=== PATIENT | female | born 1960 ===

== ENCOUNTER 2016-09-28 17:44 | Emergency (ER) | payer MEDICAID, OTHER ==
[2016-09-28 17:54] VITALS: BP 125/94; PULSE 96; RESP 18; TEMP 99.2; O2SAT 99
--- NOTE | 2016-09-28 18:25 | ED PDOC ---
HPI: Skin/Bite Injury Time Seen by Provider: 09/28/16 18:05 Chief Complaint (Nursing): Abnormal Skin Integrity Chief Complaint (Provider): Abnormal Skin Integrity History Per: Patient, Family (daughter acting as workforce services representative for patient) , Branch Banker History/Exam Limitations: no limitations Onset/Duration Of Symptoms: Hrs (pt says she noticed it earlier today ( approximately 6x hours prior to arrival)) Current Symptoms Are (Timing): Still Present Location Of Injury: Right: Abdomen (right groin region) Quality Of Symptoms: Painful Severity: Moderate Additional Complaint(s): 56 year old female with a pertinent medical history of HTN and hypercholesterolemia presents to the ED with complaints of a rash on her right groin region. She reports that she noticed it earlier today (approximately 6x hours prior to arrival). She reports that the rash was preceded by burning and stinging pain right leg and right groin region that started 2 days ago. She has taken naprosyn with no relief and the pain is exacerbated by touch to the region (including having clothing on the area). She denies having a fever or chills. PMD: Ross De La Cruz Jr, MD. Past Medical History Reviewed: Historical Data, Nursing Documentation, Vital Signs Vital Signs: Last Vital Signs Temp 99.2 F 09/28/16 17:52 Pulse 96 H 09/28/16 17:52 Resp 18 09/28/16 17:52 BP 125/94 H 09/28/16 17:52 Pulse Ox 99 09/28/16 18:33 - Medical History PMH: HTN, Hypercholesterolemia - Surgical History Surgical History: Appendectomy, (2x) Other surgeries: hysterectomy - Family History Family History: States: No Known Family Hx - Living Arrangements Living Arrangements: With Family - Social History Current smoker - smoking cessation education provided: No Alcohol: None Drugs: Denies - Home Medications Home Medications: Ambulatory Orders Medication Instructions Recorded Enalapril Maleate [Vasotec] 1 tab PO DAILY 09/28/16 Ibuprofen [Motrin Tab] 800 mg PO Q8 PRN #20 tab 09/28/16 traMADol [Ultram] 50 mg PO Q6H PRN #20 tab 09/28/16 valACYclovir [Valtrex] 1 gm PO TID #21 tab 09/28/16 - Allergies Allergies/Adverse Reactions: Allergies Allergy/AdvReac Type Severity Reaction Status Date / Time No Known Allergies Allergy Verified 09/28/16 17:51 Review of Systems ROS Statement: Except As Marked, All Systems Reviewed And Found Negative Constitutional: Negative for: Fever, Chills Skin: Positive for: Rash (right groin region) Physical Exam - Reviewed Nursing Documentation Reviewed: Yes Vital Signs Reviewed: Yes - Physical Exam Appears: Positive for: Well, Non-toxic, No Acute Distress Head Exam: Positive for: ATRAUMATIC, NORMOCEPHALIC Skin: Positive for: Normal Color Eye Exam: Positive for: Normal appearance Cardiovascular/Chest: Positive for: Regular Rate, Rhythm Respiratory: Positive for: Normal Breath Sounds. Negative for: Respiratory Distress Extremity: Positive for: Other (vesicular rash on erythematous base noted to right groin region. Moderate tenderness to palpation. Appearance is consistent with shingles) Neurologic/Psych: Positive for: Alert, Oriented (3x), Gait (stead) - ECG O2 Sat by Pulse Oximetry: 99 (RA) Pulse Ox Interpretation: Normal Medical Decision Making Medical Decision Makin:05 Initial impression: 56 year old female with shingles. Plan: * tramadol 50mg PO in ED * Patient will be will be discharged with Rx for tramadol, motrin and valtrex, and is instructed to follow up with PMD (Ross De La Cruz MD) in 2x days. Scribe Attestation: Documented by Tamara Gurrola, acting as a scribe for Rabia Ramey PA-C. Provider Scribe Attestation: All medical record entries made by the Scribe were at my direction and personally dictated by me. I have reviewed the chart and agree that the record accurately reflects my personal performance of the history, physical exam, medical decision making, and the department course for this patient. I have also personally directed, reviewed, and agree with the discharge instructions and disposition. Disposition - Clinical Impression Clinical Impression: Shingles - Patient ED Disposition Is Patient to be Admitted: No Counseled Patient/Family Regarding: Diagnosis, Need For Followup, Rx Given - Disposition Referrals: Ross De La Cruz Jr., MD [Family Provider] - Disposition: Routine/Home Disposition Time: 18:42 Condition: STABLE Additional Instructions: Take rx meds as directed. Keep area clean and dry, do not apply any topical creams. Follow up with primary care doctor in 2-3 days. Prescriptions: Ibuprofen [Motrin Tab] 800 mg PO Q8 PRN #20 tab PRN Reason: Pain, Moderate (4-7) traMADol [Ultram] 50 mg PO Q6H PRN #20 tab PRN Reason: Pain, Moderate (4-7) valACYclovir [Valtrex] 1 gm PO TID #21 tab Instructions: Shingles (ED) Print Language: WELSH
== END 2016-09-28 19:13 | disposition home or self-care (01) ==
LOC: H.ER 17:44
DX: B02.9 Zoster without complications (principal)

== ENCOUNTER 2018-04-11 00:14 | Emergency (ER) | payer MEDICAID ==
[2018-04-11 00:49] VITALS: TEMP 98.6
[2018-04-11] MEDS ORDERED: Sodium Chloride 0.9% 1,000 ML IV STA ×2 (01:20→01:22)
--- NOTE | 2018-04-11 01:34 | ED PDOC ---
HPI: Abdomen Time Seen by Provider: 04/11/18 00:45 Chief Complaint (Nursing): Abdominal Pain Chief Complaint (Provider): Abdominal Pain History Per: Patient History/Exam Limitations: no limitations Onset/Duration Of Symptoms: Days (x2) Current Symptoms Are (Timing): Still Present Additional Complaint(s): 57 year old female with pmHx of HTN, dyslipidemia, and gastritis, presents to ED with intermittent abdominal pain and 20 episodes of nonbloody, watery diarrhea. Patient reports having diarrhea on and off for 1 month but symptoms worsen within the last 2 days. She was evaluated by her PCP yesterday then diagnosed with colitis but was not prescribed medication. Patient additionally reports associated tactile fever, nausea, general weakness, and sore throat but denies vomiting. PCP: Dr. Mike Oliver Past Medical History Reviewed: Historical Data, Nursing Documentation, Vital Signs Vital Signs: Last Vital Signs Temp 98.6 F 04/11/18 00:42 Pulse 115 H 04/11/18 00:42 Resp 16 04/11/18 00:42 BP 126/85 04/11/18 00:42 Pulse Ox 100 04/11/18 00:42 - Medical History PMH: Gastritis, HTN, Hypercholesterolemia - Surgical History Surgical History: Appendectomy, (2x) - Family History Family History: States: Unknown Family Hx - Social History Current smoker - smoking cessation education provided: No Alcohol: None Drugs: Denies - Home Medications Home Medications: Ambulatory Orders Medication Instructions Recorded Enalapril Maleate [Vasotec] 1 tab PO DAILY 09/28/16 Ibuprofen [Motrin Tab] 800 mg PO Q8 PRN #20 tab 09/28/16 traMADol [Ultram] 50 mg PO Q6H PRN #20 tab 09/28/16 valACYclovir [Valtrex] 1 gm PO TID #21 tab 09/28/16 Dicyclomine [Bentyl] 20 mg PO Q12 PRN #20 tab 04/11/18 Ondansetron ODT [Zofran ODT] 4 mg PO Q6 PRN #8 odt 04/11/18 - Allergies Allergies/Adverse Reactions: Allergies Allergy/AdvReac Type Severity Reaction Status Date / Time No Known Allergies Allergy Verified 09/28/16 17:51 Review of Systems ROS Statement: Except As Marked, All Systems Reviewed And Found Negative Constitutional: Positive for: Fever (tactile), Weakness ENT: Positive for: Throat Pain Gastrointestinal: Positive for: Nausea, Abdominal Pain, Diarrhea (NB, watery x20). Negative for: Vomiting Physical Exam - Reviewed Nursing Documentation Reviewed: Yes Vital Signs Reviewed: Yes - Physical Exam Appears: Positive for: Non-toxic, Uncomfortable Head Exam: Positive for: ATRAUMATIC, NORMAL INSPECTION, NORMOCEPHALIC Skin: Positive for: Normal Color Eye Exam: Positive for: Normal appearance ENT: Positive for: Pharyngeal Erythema, Other (dry mucous membranes) Cardiovascular/Chest: Positive for: Regular Rate, Rhythm Respiratory: Positive for: Normal Breath Sounds. Negative for: Respiratory D istress Gastrointestinal/Abdominal: Positive for: Soft, Tenderness (mid-right) Back: Positive for: Normal Inspection. Negative for: L CVA Tenderness, R CVA Tenderness Extremity: Positive for: Normal ROM (uper/lower) Neurologic/Psych: Positive for: Alert, Oriented - Laboratory Results Result Diagrams: 04/11/18 02:22 04/11/18 02:22 - ECG O2 Sat by Pulse Oximetry: 100 (RA) Pulse Ox Interpretation: Normal Medical Decision Making Medical Decision Making: Initial Impression: 57 year old female with abdominal pain and diarrheal illness. Initial Plan: * CT ABD/pelvis with IV contrast * Labs * Bentyl 20mg PO * IV fluids * Zofran 4mg IV * Blood culture * Influenza A B * Rapid strep * US gallbladder/pancreas Time: 5 --Negative for influenza and strep. Time: 033 --US gallbladder/pancreas Findings: The liver is normal in size measuring 11.9 cm. Normal hepatic echogenicity and smooth hepatic contour. Diffuse thickening of the gallbladder which measures 4.9 mm. Negative sonographic Crisostomo. Nondilated common bile duct measuring 3.6 mm. Limited visualization of the pancreas secondary to gaseous bowel distention. Unremarkable IVC as visualized. Unremarkable aorta as visualized. Unremarkable right kidney measuring 9.6x6.3x4.8 cm. Nonobstructing stone is noted in the mi dportion calyceal group of the right kidney measuring 1.1 cm. Impression: Mild diffuse thickening of the gallbladder. This can be reactive to the hepatitis, parenchymal liver disease. Correlation with LFTs is recommended. Differential diagnoses include developing acute inflammatory pathology of the gallbladder itself. No sonographic evidence of cholelithiasis. Time: 409 --CT ABD/pelvis Findings: Minimal diffuse thickening of the gallbladder. Minimal bilateral basilar subsegmental atelectatic pulmonary changes. Small sliding hiatal hernia. Uncomplicated colonic diverticulosis. Fluid filled small bowels. 1.3 cm well defined hypodense lesion of the liver, probably benign. The emaining liver is of uniform attenuation without mass or defect. There is no intra or extrahepatic biliary ductal dilatation. The spleen is normal. The pancreas is of normal contour and attenuation characteristics. There is no evidence of adrenal mass. Both kidneys demonstrate prompt and equal nephrograms. The kidneys are normal in size, shape and configuration. There is no evidence of renal or ureteral mass. No renal or ureteral calculi are identified. There is no hydroureter or h ydronephrosis. No evidence for appendicitis. There is no bowel wall thickening. No evidence for small or large bowel obstruction. There is no evidence of abdominal ascites or lymphadenopathy. There is no evidence of intrinsic or extrinsic bladder mass. There is no pelvic ascites or lymphadenopathy. Images of the lung bases show no evidence of pleural or parenchymal mass. There are no pleural effusions. The bony structures are free of lytic or blastic lesions. IMPRESSION: Suspected developing enteritis. Minimal thickening of the gallbladder without associated CT evidence of cholelithiasis. Time: 451 --Upon provider reevaluation, patient is medically stable, reports marketable improvement in symptoms and requires no further treatment in the ED at this time. Patient will be discharged home with Rx for Bentyl and Zofran. Counseling was provided and all questions were answered regarding diagnosis. There is agreement to discharge plan. Return if symptoms persist or worsen. Clinical Impression: Gastroenteritis; Viral syndrome Scribe Attestation: Documented by Debo Andrade, acting as a scribe for Bony Hernandez MD. Provider Scribe Attestation: All medical record entries made by the Scribe were at my direction and personally dictated by me. I have reviewed the chart and agree that the record accurately reflects my personal performance of the history, physical exam, medical decision making, and the department course for this patient. I have also personally directed, reviewed, and agree with the discharge instructions and disposition. Disposition - Clinical Impression Clinical Impression: Viral syndrome, Gastroenteritis - Patient ED Disposition Is Patient to be Admitted: No Counseled Patient/Family Regarding: Studies Performed, Diagnosis - Disposition Disposition: Routine/Home Disposition Time: 04:00 Condition: STABLE Prescriptions: Dicyclomine [Bentyl] 20 mg PO Q12 PRN #20 tab PRN Reason: abdominal pain/diarrhea Ondansetron ODT [Zofran ODT] 4 mg PO Q6 PRN #8 odt PRN Reason: Nausea/Vomiting Instructions: Viral Syndrome (DC), Gastroenteritis (ED) Forms: [facility] (Danish) Print Language: CAP[place] VER[place]
[2018-04-11 02:24] LABS: BASO % 0.4 % (0.0-2.0); EOS # 0.1 K/uL (0.0-0.7); EOS % 0.7 % (0.0-4.0); HEMOGLOBIN 14.4 g/dL (12.0-16.0); LYMPH % 10.8 % (20.0-40.0); MEAN CELL VOLUME 95.2 fl (81.0-99.0); MEAN CORPUSCULAR HEMOGLOBIN 31.9 pg (27.0-31.0); MEAN CORPUSCULAR HGB CONC 33.5 g/dL (33.0-37.0); MEAN PLATELET VOLUME 9.5 fl (7.2-11.7); MONO # 0.6 K/uL (0.0-0.8); MONO % 6.6 % (0.0-10.0); NEUT # 7.6 K/uL (1.8-7.0); NEUT % 81.5 % (50.0-75.0); NRBC % 0.2 % (0.0-0.0); RBC 4.51 Mil/uL (3.80-5.20); RED CELL DISTRIBUTION WIDTH 13.7 % (11.5-14.5); WHITE BLOOD COUNT 9.3 K/uL (4.8-10.8)
[2018-04-11 02:35] LABS: ALB/GLOB RATIO 1.4 (1.0-2.1); ALBUMIN 4.1 g/dL (3.5-5.0); ALT/SGPT 33 U/L (9-52); AST/SGOT 26 U/L (14-36); BLOOD UREA NITROGEN 18 mg/dl (7-17); CALCIUM 9.4 mg/dL (8.4-10.2); GFR NON-AFRICAN AMERICAN > 60; LIPASE 185 U/L (23-300)
[2018-04-11] MEDS ORDERED: Sodium Chloride 0.9% 50 ML IV ONE (02:46)
[2018-04-11] MEDS ORDERED: Iohexol 300 100 ML IJ ONE (02:46)
[2018-04-11 05:23] VITALS: BP 123/84; PULSE 75; RESP 17; O2SAT 98
--- NOTE | 2018-04-11 12:11 | CT ---
Date of service: 04/11/2018 PROCEDURE: CT Abdomen and Pelvis with contrast HISTORY: diarrhea/abd pain COMPARISON: Limited abdomen ultrasound 04/11/2018. TECHNIQUE: Contrast dose: Omnipaque 300, 90 cc Radiation dose: Total exam DLP = 331.47 mGy-cm. This CT exam was performed using one or more of the following dose reduction techniques: Automated exposure control, adjustment of the mA and/or kV according to patient size, and/or use of iterative reconstruction technique. FINDINGS: LOWER THORAX: Small hiatal hernia is identified. Mild right hemidiaphragm elevation noted, etiology indeterminate. LIVER: Diminished attenuation throughout the liver indicates hepatic steatosis without intrahepatic biliary dilatation appreciable this time. There is a 1 cm ill-defined lucency at the dome liver difficult to characterize. This is not seen in the prior ultrasound earlier on 04/11/2018. GALLBLADDER AND BILE DUCTS: Unremarkable. PANCREAS: Unremarkable. No gross lesion or ductal dilatation. SPLEEN: Unremarkable. ADRENALS: Unremarkable. No mass. KIDNEYS AND URETERS: There tiny solitary cortical infarct identified at the lower pole right and mid to lower pole left kidney posteriorly with the kidneys otherwise unremarkable appearing. Prior echogenic focus at midpole right kidney is not identified on the current examination. VASCULATURE: Trace non aneurysmal abdominal aortic calcific atherosclerotic changes are identified. BOWEL: Limited sigmoid diverticulosis without diverticulitis.. No obstruction. No gross mural thickening. APPENDIX: Not identified. No CT evidence of appendicitis. PERITONEUM: Unremarkable. No free fluid. No free air. LYMPH NODES: Unremarkable. No enlarged lymph nodes. BLADDER: Unremarkable. REPRODUCTIVE: Prior hysterectomy noted. BONES: No acute fracture. OTHER FINDINGS: None. IMPRESSION: 1. Hepatic steatosis. A small 1 cm lucency seen at the dome liver posteriorly difficult to characterize due to its limited definition and small size. 2. Mural thickening is inapparent at the gallbladder although it does appear mildly distended. No radiodense cholelithiasis in the gallbladder. Ultrasound 04/11/2018 suggests potential mural thickening. Clinically correlate further. Further characterization by nuclear hepatobiliary scan can be performed if there is clinical concern for possible cystic or common duct obstruction. Preliminary report provided by [facility], 04/11/2018.
--- NOTE | 2018-04-11 15:10 | US ---
Date of service: 04/11/2018 HISTORY: RUQ pain COMPARISON: None. TECHNIQUE: Sonographic evaluation of the right upper quadrant of the abdomen. FINDINGS: LIVER: Measures 12.0 cm in length. Normal echogenicity of the liver parenchyma. No mass. No intrahepatic bile duct dilatation. GALLBLADDER: Gallbladder is distended with no cholelithiasis in the lumen. No pericholecystic fluid collection evident. Accurate gallbladder wall measurement is not felt to have been obtained although the gallbladder wall may be thickened up to approximately 2.5 mm thickness. Further clinical correlation is recommended. No sonographic Crisostomo sign reported. COMMON BILE DUCT: Measures 3.7 mm. No stones. No dilatation. PANCREAS: Pancreas head and neck appear unremarkable with remainder obscured by overlying bowel gas. RIGHT KIDNEY: Measures 9.6 cm in length. Normal echogenicity. No calculus, mass, or hydronephrosis. AORTA: No aneurysmal dilatation. IVC: Unremarkable. OTHER FINDINGS: None . IMPRESSION: 1. Distended gallbladder without cholelithiasis. No sonographic Crisostomo sign. Gallbladder wall upper limits normal thickness. Clinically correlate further. CBD normal caliber. 2. Partial imaging of the pancreas. Concordant preliminary report from [facility], 05/11/2018.
== END 2018-04-11 04:59 | disposition home or self-care (01) ==
LOC: H.ER 00:14
DX: B34.9 Viral infection, unspecified (principal); K52.9 Noninfective gastroenteritis and colitis, unspecified; Z79.899 Other long term (current) drug therapy; I10 Essential (primary) hypertension; E78.00 Pure hypercholesterolemia, unspecified
CPT/HCPCS: 74177; 76705; 80053; 83605; 83690; 85025; 87040; 87070; 87430; 87804; 96361; 96374; 99283; J1885; J7030; Q9967